=== PATIENT | female | born 1980 | race Caucasian/White ===

== ENCOUNTER 2018-01-05 15:34 | Emergency (ER) | payer OTHER ==
[2018-01-05 16:02] VITALS: BP 103/62
--- NOTE | 2018-01-05 16:05 | UC ---
HPI Wound/Suture Re-check - HPI Summary HPI Summary: One week ago, fell asleep on the stairs and suffered a laceration anterior left scalp. Had candie put in 1 week ago. - History Of Current Complaint Stated Complaint: REMOVE CANDIE Time Seen by Provider: 01/05/18 15:59 Hx Obtained From: Patient Hx Last Menstrual Period: 3 WEEKS AGO Onset/Duration: Sudden Onset, Lasting Weeks - 1 Severity: Mild Pain Intensity: 0 Procedure Type: laceration repair Head: 1 - laceration with good healing. 2 candie - Allergies/Home Medications Allergies/Adverse Reactions: Allergies Allergy/AdvReac Type Severity Reaction Status Date / Time Niacin [Niacin] Allergy Bleeding Verified 08/18/15 09:41 BEES Allergy EDEMA, Uncoded 08/18/15 09:41 CANT BREATH cherries, fish,musrooms Allergy Swelling Uncoded 08/18/15 09:41 Of Face,Lips,& Throat PMH/Surg Hx/FS Hx/Imm Hx Other GI/ History: hepatitis C Psychological History: Anxiety Other History Of: Hepatitis C - Surgical History Surgical History: Yes Surgery Procedure, Year, and Place: umbilical hernia 2013 [facility], [place], [place],tubal - Family History Known Family History: Positive: Cardiac Disease, Hypertension, Diabetes - Social History Occupation: Unemployed Lives: With Family Alcohol Use: None Substance Use Type: Cocaine, Marijuana Substance Use Comment - Amount & Last Used: HX MARIJUANA, CRACK COCAINE, RARE MARIJUANA USE NOW, CLEAN FROM COCAINE NOW Smoking Status (MU): Current Every Day Smoker Type: Cigarettes Amount Used/How Often: 1/2 PACK A DAY Have You Smoked in the Last Year: Yes - Immunization History Most Recent Influenza Vaccination: unknown Most Recent Tetanus Shot: unknown Most Recent Pneumonia Vaccination: never Review of Systems Is Patient Immunocompromised?: No All Other Systems Reviewed And Are Negative: Yes Physical Exam Triage Information Reviewed: Yes Appearance: Well-Appearing, No Pain Distress, Well-Nourished Vital Signs Reviewed: Yes Eyes: Positive: Conjunctiva Clear ENT: Positive: Pharynx normal, TMs normal Neck exam: Normal Respiratory Exam: Normal Cardiovascular Exam: Normal Musculoskeletal Exam: Normal Neurological Exam: Normal Psychological Exam: Normal Skin Exam: Normal Procedures - Procedure Summary Procedure Summary: Left frontal scalp staple removal. 2 candie removed without difficult and would healing well. Course/Dx - Differential Dx - Laceration/Wound Differential Diagnoses: Cellulitis, Dehiscence, Healing Wound, Suture Removal Provider Diagnoses: Open wound scalp. Staple removal. Discharge - Sign-Out/Discharge Documenting (check all that apply): Patient Departure - Discharge Plan Condition: Stable Disposition: HOME Patient Education Materials: Laceration (ED), Wound Healing and Your Diet (ED) Referrals: No Primary Care Phys,NOPCP [Primary Care Provider] - Additional Instructions: Smoking Cessation Tricks. 1. Cut down by 1 cigarette per day every 2-3 days. Write the number of smokes for that day on the calendar. 2. Identify triggers to smoking: after meals, on the phone, in the car, with coffee, on breaks at work, etc. 3. Formulate a plan with a behavior to replace the smoking. Fireballs in the car , doodle pad on the phone, flavored creamer for the coffee, go for a walk after a meal or on break at work. 4. For stress smokes do deep breathing relaxation. Breath deep in through the nose hold the breath in for a few seconds then breath out slowly through the mouth. - Billing Disposition and Condition Condition: STABLE Disposition: Home
== END 2018-01-05 16:21 | disposition home or self-care (01) ==
LOC: UCCORT 15:34
DX: S01.01XD Laceration without foreign body of scalp, subsequent encounter (principal); F17.210 Nicotine dependence, cigarettes, uncomplicated; B19.20 Unspecified viral hepatitis C without hepatic coma; Z88.1 Allergy status to other antibiotic agents; Z91.030 Bee allergy status; Z91.018 Allergy to other foods; W10.9XXD Fall (on) (from) unspecified stairs and steps, subsequent encounter
CPT/HCPCS: 99211; G0463

== ENCOUNTER 2018-08-28 18:32 | Emergency (ER) | payer OTHER ==
[2018-08-28 18:44] VITALS: BP 110/77
--- NOTE | 2018-08-28 18:50 | UC ---
Seizure HPI - HPI Summary HPI Summary: seizure: pt reports one year of seizure activity which is worse w/ stress and resolves on its own. started 1 yr ago after she hit her head. has never gone to ED or neuro for this. she does have LOC and it has been witnessed. of note has not used cocaine/opiates x3 yrs b/c of her 3yr old son. she would like to know what is causing this. she reports having a seizure today, did not hit her head. her partner who is here during visit states he can usually talk to her and tell her to breathe which helps. illness: also c/o fever, chills, n/v for one week. thinks she has the flu. declines urine hcg. - History Of Current Complaint Chief Complaint: UCSeizure Stated Complaint: SEIZURE ACTIVITY Time Seen by Provider: 08/28/18 18:44 Hx Obtained From: Patient Hx Last Menstrual Period: one week ago - Allergies/Home Medications Allergies/Adverse Reactions: Allergies Allergy/AdvReac Type Severity Reaction Status Date / Time niacin Allergy Bleeding Verified 08/28/18 18:45 BEES Allergy EDEMA, Uncoded 08/28/18 18:45 CANT BREATH cherries, fish, mushrooms Allergy Swelling Uncoded 08/28/18 18:45 Of Face,Lips,& Throat PMH/Surg Hx/FS Hx/Imm Hx - Additional Past Medical History Additional PMH: ptsd, bipolar Previously Healthy: Yes Other History Of: Hepatitis C - Surgical History Surgical History: Yes Surgery Procedure, Year, and Place: umbilical hernia 2012 [place], [place],tubal - Family History Known Family History: Positive: Unknown, Cardiac Disease, Hypertension, Diabetes - Social History Alcohol Use: None Substance Use Type: Cocaine, Marijuana Substance Use Comment - Amount & Last Used: HX MARIJUANA, CRACK COCAINE, RARE MARIJUANA USE NOW, CLEAN FROM COCAINE NOW Smoking Status (MU): Current Every Day Smoker Type: Cigarettes Amount Used/How Often: 1/2 PACK A DAY Have You Smoked in the Last Year: Yes - Immunization History Most Recent Influenza Vaccination: unknown Most Recent Tetanus Shot: unknown Most Recent Pneumonia Vaccination: never Review of Systems All Other Systems Reviewed And Are Negative: Yes Constitutional: Positive: Fever, Chills, Fatigue ENT: Positive: Nasal Discharge Respiratory: Positive: Cough Neurological: Positive: Other - seizures. Physical Exam Vital Signs: Initial Vital Signs Temp 98.0 F 08/28/18 18:39 Pulse 90 08/28/18 18:39 Resp 18 08/28/18 18:39 BP 110/77 08/28/18 18:39 Pulse Ox 100 08/28/18 18:39 Seizure Course/Dx - Course Course Of Treatment: flu like illness x1 wk. Rapid flu neg. comfort measures for this. also c/o several episodes of seizure activity, witnessed w/ LOC but has never called 911 or gone to the ED for this. she reports one today, denies head injury was witnessed by partner and he was able to 'talk her down from it' which does not sound like seizure activity. vitals stable. I strongly encouraged she call the ambulance or go to ED when she has one. am sending to neuro to start w/u as this issue seems chronic. - Differential Dx/Diagnosis Provider Diagnosis: Flu-like symptoms, Convulsion Discharge - Sign-Out/Discharge Documenting (check all that apply): Patient Departure All imaging exams completed and their final reports reviewed: No Studies - Discharge Plan Condition: Good Disposition: HOME Patient Education Materials: Nonepileptic Seizures (ED) Forms: *Work Release Referrals: Kay Roy NP [Nurse Practitioner] - [facility] [Outside] Additional Instructions: For the question of seizures please follow up with the neurology office printed on the paperwork. [facility] also sees primary care - Billing Disposition and Condition Condition: GOOD Disposition: Home
[2018-08-28 19:20] LABS: Influenza A Molecular NEGATIVE (Negative); Influenza B Molecular NEGATIVE (Negative)
[2018-08-28] MEDS ORDERED: Nitroglycerin TAB 0.4 MG* 0.4 MG TAB SL ONE (20:00)
== END 2018-08-28 20:20 | disposition home or self-care (01) ==
LOC: UCEAST 18:32
DX: R56.9 Unspecified convulsions (principal); R50.9 Fever, unspecified; R11.2 Nausea with vomiting, unspecified; F17.210 Nicotine dependence, cigarettes, uncomplicated; Z91.030 Bee allergy status; Z91.013 Allergy to seafood; Z91.018 Allergy to other foods; Z88.8 Allergy status to other drugs, medicaments and biological substances
CPT/HCPCS: 99211; G0463

== ENCOUNTER 2018-09-13 12:26 | Emergency (ER) | payer OTHER ==
--- NOTE | 2018-09-13 12:36 | UC ---
FLU HPI - HPI Summary HPI Summary: 38 yo female presents with dry cough for the last 2 days, however she is most concerned about left sided low back/hip pain that began yesterday. She tells me that she had issues with sciatica many years ago, but hasn't had any problems since then. Yesterday she felt pain in her left lower back that radiates into her buttocks and down the back of her left leg. This is similar to the same pain she had a few years ago. She has not taken anything OTC for her symptoms. Denies fever, chills, numbness, tingling, saddle anesthesia, dysuria, or loss of bowel/bladder control. - History of Current Complaint Chief Complaint: UCRespiratory Stated Complaint: COUGH,HIP AND SHOULDER PAIN Time Seen by Provider: 09/13/18 12:36 Hx Obtained From: Patient Hx Last Menstrual Period: one week ago Onset/Duration: Sudden Onset Severity Currently: Moderate Severity Initially: Moderate Pain Intensity: 7 Pain Scale Used: 0-10 Numeric - Allergy/Home Medications Allergies/Adverse Reactions: Allergies Allergy/AdvReac Type Severity Reaction Status Date / Time niacin Allergy Bleeding Verified 09/13/18 12:39 BEES Allergy EDEMA, Uncoded 09/13/18 12:39 CANT BREATH cherries, fish, mushrooms Allergy Swelling Uncoded 09/13/18 12:39 Of Face,Lips,& Throat PMH/Surg Hx/FS Hx/Imm Hx - Additional Past Medical History Additional PMH: Drug abuse Other History Of: Hepatitis C - Surgical History Surgical History: Yes Surgery Procedure, Year, and Place: umbilical hernia 2013 [facility], [place], [place],tubal - Family History Known Family History: Positive: Cardiac Disease, Hypertension, Diabetes - Social History Lives: With Family Alcohol Use: None Substance Use Type: Cocaine, Marijuana Substance Use Comment - Amount & Last Used: HX MARIJUANA, CRACK COCAINE, RARE MARIJUANA USE NOW, CLEAN FROM COCAINE NOW Smoking Status (MU): Current Every Day Smoker Type: Cigarettes Amount Used/How Often: 1/2 PACK A DAY Have You Smoked in the Last Year: Yes - Immunization History Most Recent Influenza Vaccination: unknown Most Recent Tetanus Shot: unknown Most Recent Pneumonia Vaccination: never Review of Systems All Other Systems Reviewed And Are Negative: Yes Constitutional: Positive: Negative Skin: Positive: Negative Eyes: Positive: Negative ENT: Positive: Negative Respiratory: Positive: Cough Cardiovascular: Positive: Negative Gastrointestinal: Positive: Negative Neurovascular: Positive: Negative Musculoskeletal: Positive: Other: - Low back pain Neurological: Positive: Negative Psychological: Positive: Negative Physical Exam - Summary Physical Exam Summary: GENERAL: NAD. WDWN. No pain distress. SKIN: No rashes, sores, lesions, or open wounds. HEENT: Head: AT/NC Eyes: EOM intact. Conjunctiva clear without inflammation or discharge. Ears: Hearing grossly normal. TMs intact, no bulging, erythema, or edema. Nose: Nasal mucosa pink and moist. NTTP maxillary and frontal sinus. Throat: Posterior oropharynx without exudates, erythema, or tonsillar enlargement. Uvula midline. NECK: Supple. Nontender. No lymphadenopathy. CHEST: CTAB. No r/r/w. No accessory muscle use. Breathing comfortably and in no distress. CV: RRR. Without m/r/g. Pulses intact. Cap refill <2seconds MSK: TTP over left lumbar paraspinal muscles. Pain with flexion and extension of spine. Positive SLR on left for low back pain without radiation. Strength 5/ 5 B/L LEs including dorsiflexion and plantar flexion. FROM B/L LEs. No edema. NEURO: Alert. Sensations intact L3-S1 b/l. PSYCH: Age appropriate behavior. Triage Information Reviewed: Yes Vital Signs: Vital Signs: Temp Pulse Resp BP Pulse Ox 98.2 F 90 18 96/60 100 09/13/18 12:35 09/13/18 12:35 09/13/18 12:35 09/13/18 12:35 09/13/18 12:35 Vital Signs Reviewed: Yes Flu Course/Dx - Course Course Of Treatment: Regarding her cough, I suspect this is a viral illness and recommended she try OTC cepacol cough drops and cut back on smoking. Regarding her back pain, suspect flare of her sciatica. She was given toradol IM in the clinic and advised to take tylenol/ibuprofen and will rx for flexeril. Off work today and tomorrow. Heat/Ice the area and practice gentle stretching. F/u with PCP if symptoms do not improve. - Differential Dx/Diagnosis Provider Diagnosis: Sciatica, Cough Discharge - Sign-Out/Discharge Documenting (check all that apply): Patient Departure All imaging exams completed and their final reports reviewed: No Studies - Discharge Plan Condition: Stable Disposition: HOME Prescriptions: Cyclobenzaprine TAB* [Flexeril 10 MG TAB*] 10 mg PO TID PRN #21 tab PRN Reason: Pain Oseltamivir CAP* [Tamiflu CAP*] 75 mg PO BID #10 cap Patient Education Materials: Sciatica (ED), Acute Cough (ED) Forms: *Work Release Referrals: No Primary Care Phys,NOPCP [Primary Care Provider] - Additional Instructions: If you develop a fever, shortness of breath, chest pain, new or worsening symptoms - please call your PCP or go to the ED. - Billing Disposition and Condition Condition: STABLE Disposition: Home - Attestation Statements Provider Attestation: I was available for consult. This patient was seen by the ANEUDY. The patient was not presented to, seen by, or examined by me. -Enedina
[2018-09-13 12:38] VITALS: BP 96/60
[2018-09-13] MEDS ORDERED: Ketorolac INJ* 30 MG/ML 1 ML VIAL IM ONE (12:49)
== END 2018-09-13 13:15 | disposition home or self-care (01) ==
LOC: UCEAST 12:26
DX: R05 Cough (principal); M54.32 Sciatica, left side; F17.210 Nicotine dependence, cigarettes, uncomplicated; Z88.8 Allergy status to other drugs, medicaments and biological substances; Z91.018 Allergy to other foods; Z91.030 Bee allergy status; Z91.013 Allergy to seafood
CPT/HCPCS: 99212; G0463; J1885

== ENCOUNTER 2018-09-17 10:49 | Emergency (ER) | payer OTHER ==
[2018-09-17 12:23] VITALS: BP 102/54
--- NOTE | 2018-09-17 12:45 | UC ---
Abdominal Pain Female HPI - HPI Summary HPI Summary: Pt presents with c/o RLQ pain that began yesterday on LLQ and is now worse on RLQ. Pt states the pain "comes and goes and is getting worse. Pt has known hx of ovarian cyst, had tubal ligation years prior. Denies unusual vaginal discharge, or risk for STD. Denies fever but states that she is occasionally chilled. - History of Current Complaint Chief Complaint: UCAbdominalPain Stated Complaint: FLU SX'S, ABD PAIN Time Seen by Provider: 09/17/18 12:22 Hx Obtained From: Patient Hx Last Menstrual Period: 09/16/18 ?: No Onset/Duration: Sudden Onset, Lasting Days, Still Present, Worse Since - onset Timing: Constant Severity Initially: Mild Severity Currently: Severe Pain Intensity: 10 Pain Scale Used: 0-10 Numeric Location: Discrete At: RLQ Radiates: Yes Radiates to: LLQ Character: Colicy, Cramping, Dull, Sharp Aggravating Factor(s): Movement Alleviating Factor(s): Nothing Associated Signs and Symptoms: Positive: Nausea - Risk Factors Ectopic Risk Factor: Tubal Ligation Ovarian Torsion Risk Factor: Ovarian Cysts/Tumors, Tubal Ligation Allergies/Adverse Reactions: Allergies Allergy/AdvReac Type Severity Reaction Status Date / Time bee venom protein (honey bee) Allergy Difficulty Verified 09/17/18 12:17 Breathing, Swelling roberts Allergy Swelling Verified 09/17/18 12:17 Of Face,Lips,& Throat Fish Containing Products Allergy Swelling Verified 09/17/18 12:17 Of Face,Lips,& Throat mushroom Allergy Swelling Verified 09/17/18 12:17 Of Face,Lips,& Throat niacin Allergy Bleeding Verified 09/13/18 12:39 PMH/Surg Hx/FS Hx/Imm Hx Previously Healthy: Yes Other History Of: Hepatitis C - Surgical History Surgical History: Yes Surgery Procedure, Year, and Place: Tubal Ligation, ~2014, [place]; Umbilical Herniorrhaphy, 2013, [place] - Family History Known Family History: Positive: Unknown, Cardiac Disease, Hypertension, Diabetes - Social History Occupation: Employed Full-time Lives: With Family Alcohol Use: None Substance Use Type: Marijuana Substance Use Comment - Amount & Last Used: CBD Oil "now and then" Smoking Status (MU): Heavy Every Day Tobacco Smoker Type: Cigarettes Amount Used/How Often: 1/2 PPD Length of Time of Smoking/Using Tobacco: Since Age 13 Have You Smoked in the Last Year: Yes Household Exposure Type: Cigarettes - Immunization History Most Recent Influenza Vaccination: unknown Most Recent Tetanus Shot: unknown Most Recent Pneumonia Vaccination: never Review of Systems All Other Systems Reviewed And Are Negative: Yes Constitutional: Positive: Chills Skin: Positive: Negative Eyes: Positive: Negative ENT: Positive: Negative Respiratory: Positive: Negative Cardiovascular: Positive: Negative Gastrointestinal: Positive: Abdominal Pain, Nausea Genitourinary: Positive: Negative Motor: Positive: Negative Neurovascular: Positive: Negative Musculoskeletal: Positive: Negative Neurological: Positive: Negative Psychological: Positive: Negative Is Patient Immunocompromised?: No Physical Exam Triage Information Reviewed: Yes Appearance: Ill-Appearing, Pain Distress Vital Signs: Initial Vital Signs Temp 98.5 F 09/17/18 12:13 Pulse 102 09/17/18 12:13 Resp 24 09/17/18 12:13 BP 102/54 09/17/18 12:13 Pulse Ox 100 09/17/18 12:13 Vital Signs Reviewed: Yes ENT: Positive: Hearing grossly normal Neck exam: Normal Respiratory Exam: Normal Respiratory: Positive: No respiratory distress Cardiovascular Exam: Normal Abdomen Description: Positive: McBurney's Point Tenderness Bowel Sounds: Positive: Present Musculoskeletal Exam: Normal Neurological Exam: Normal Psychological Exam: Normal Skin Exam: Normal Abd Pain Female Course/Dx - Differential Dx/Diagnosis Differential Diagnosis: Appendicitis, Ectopic , Ovarian Cyst, Other - ovarian torsion Provider Diagnosis: Abdominal pain, Right lower quadrant abdominal pain Discharge - Sign-Out/Discharge Documenting (check all that apply): Patient Departure All imaging exams completed and their final reports reviewed: No Studies - Discharge Plan Condition: Stable Disposition: HOME-RECOMMEND TO ED Patient Education Materials: Acute Abdominal Pain (DC) Referrals: [facility] [Outside] - If Needed No Primary Care Phys,NOPCP [Primary Care Provider] - Additional Instructions: P[facility] GO DIRECTLY TO [facility] RO[facility]. YOU HAVE DECIDED TO GO BY PRIVATE CAR. PLEASE NOTE THAT IF HERE IS ANY CHANGE IN YOUR CONDITION SHOULD CALL 911 FOR FURTHER ASSISTANCE. - Billing Disposition and Condition Condition: STABLE Disposition: Home-Recommend to ED
== END 2018-09-17 12:38 | disposition home health service (06) ==
LOC: UCCORT 10:49
DX: R10.31 Right lower quadrant pain (principal); R10.32 Left lower quadrant pain; R11.0 Nausea; F17.210 Nicotine dependence, cigarettes, uncomplicated; Z98.51 Tubal ligation status; Z87.898 Personal history of other specified conditions; Z91.030 Bee allergy status; Z91.018 Allergy to other foods; Z91.013 Allergy to seafood; Z88.8 Allergy status to other drugs, medicaments and biological substances
CPT/HCPCS: 99212; G0463